=== PATIENT | male | born 1935 | race Caucasian/White ===

== ENCOUNTER → 2018-03-02 14:26 | Outpatient (CLI) | payer MEDICARE | END | disposition home or self-care (01) | LOC: D.CT 14:26 | DX: L03.119 Cellulitis of unspecified part of limb (principal) ==

== ENCOUNTER 2018-03-10 05:35 | Inpatient (IN) | payer MEDICARE ==
[2018-03-09 16:49] LABS: BASOPHILS 0.2 % (0-2); EOSINOPHILS 1.3 % (0-7); HEMATOCRIT 36.2 % (42.0-54.0); HEMOGLOBIN 12.1 g/dL (13.5-17.5); IMMATURE GRANULOCYTES 0.2 % (0-5); LYMPHOCYTES 16.2 % (15-50); MCHC 33.4 g/dL (31.0-37.0); MCV 98.6 fL (80.0-100.0); MEAN PLATELET VOLUME 8.8 fL (7.4-10.4); MONOCYTES 9.1 % (2-11); PLATELET COUNT 335 10x3/uL (130-400); RBC 3.67 10x6/uL (4.20-6.10); RDW 13.1 % (11.5-14.5)
[2018-03-09 17:02] LABS: CALCIUM 9.6 mg/dL (8.5-10.1); CARBON DIOXIDE 25.6 mmol/L (21.0-32.0); CREATININE - SERUM 1.8 mg/dL (0.6-1.3); POTASSIUM - SERUM 4.6 mmol/L (3.5-5.1)
[2018-03-09 17:28] LABS: INR 1.17 (0.85-1.17); PROTIME 14.4 SECONDS (11.6-15.0)
[2018-03-10] VITALS (13 sets, daily range): BP systolic 97–127; BP diastolic 53–76; Ht 172.7 cm; Wt 81.4 kg
[~2018-03-10] VITALS: Ht 172.7 cm; Wt 81.4 kg
--- NOTE | ~2018-03-10 | MORECARE ---
CASE MANAGEMENT DISCHARGE SUMMARY PATIENT: WILEY SANTANA UNIT: [id number] ADM DATE: 03/10/18 AGE: 82 : 34 SEX: M ROOM/BED: D.2205 AUTHOR: MAITE LARSON PHYSICIAN: REFERRING PHYSICIAN: GARY WADDELL MD DATE OF SERVICE: 03/12/18 Discharge Plan Patient Name: WILEY SANTANA Facility: [facility]:[place] : 1935 Planned Disposition: Home Anticipated Discharge Date: 03/12/18 Discharge Date: 03/12/2018 Expected LOS: 2 Initial Reviewer: [email or web address] Initial Review Date: 03/10/2018 Generated: 03/12/18 4:16 pm Comments DCP- Discharge Planning Updated by [email or web address]: Niki Alberto on 03/12/18 2:[address] Late Entry 0945 PRIMARY NURSE, CONNIE, ADVISED CM THAT THE PATIENT HAD A WALKER ORDERED WHICH HAS NOT BEEN DELIVERED. REVIEWED CM NOTES. TELEPHONE CALL TO [facility] IN [place]. LEFT MESSAGE WITH THE SERVICE. AWAITED CB. 1040 SECOND TC TO [facility] IN [place]. 1050 PATIENT'S WALKER DELIVERED TO THE BEDSIDE. 1100 CM SPOKE WITH THE PATIENT AND HIS . HE STATES SHE UNDERSTAND MEDICAL ISSUES CM CAME TO EXPLAIN THE DISCHARGE IMM. DISCUSSED AT THE BEDSIDE. REVIEWED IMM FORM. NO QUESTION OR CONCERNS. DENIES ANY ADDITIONAL NEEDS. HE IS ANXIOUS FOR DISCHARGE TO HOME. SIGNATURE OBTAINED. COPY TO THE PATIENT. COPY TO THE CHART. . DCP- Discharge Planning Updated by [email or web address]: Radha Brooke on 03/11/18 11:[address] Patient Name: WILEY SANTANA Admission Status: Elective Accout number: [id number] Admission Date: 03-10-2018 : 1935 Admission Diagnosis: Attending: GARY WADDELL Current LOS: 1 Anticipated DC Date: Planned Disposition: Home Primary Insurance: [employer] MEDICARE PPO or HMO Discharge Planning Comments: CM met with patient to assess discharge planning needs. Patient lives with his where he is independent. He is nonweight bearing on his right leg. He has a wheelchair, ramp and shower chair at home. He does not have home health and did not want any this time. He stated that PT recommended a walker. I ordered a walker from [facility] and spoke with Saadia. She will have the walker delivered to the hospital before discharge. Patient stated he is safe to return home and denies any other needs at this time. CM will continue to follow and assist with DC planning Road Advisor: Radha Brooke DCPIA - Discharge Planning Initial Assessment Updated by [email or web address]: Radha Brooke on 03/11/18 12:44 pm * Is the patient Alert and Oriented? Yes * How many steps to enter\exit or inside your home? RAMP * PCP [facility] * Pharmacy [facility] * Preadmission Environment Home with Family * ADLs Partial Dependent * Partial ADLs (Assistance needed) Ambulation * Equipment Shower Chair Wheelchair * List name and contact numbers for known caregivers / representatives who currently or will assist patient after discharge: ALICIA () [phone] * Verbal permission to speak to the caregivers and representatives has been obtained from the patient. Yes * Community resources currently utilized None * Additional services required to return to the preadmission environment? Yes * Can the patient safely return to the preadmission environment? Yes * Has this patient been hospitalized within the prior 30 days at any hospital? No Coverage Notice Reviewer: [email or web address] - Niki Alberto Notice Issued Date-Time: 03/12/2018 11:00 Notice Type: IM Discharge Notice Notice Delivered To: Patient Relationship to Patient: Mechanical Design Engineer Products Name: Delivery Method: HAND - Hand Delivered Renee Days: Prior Verbal Notification: Recipient Understood Notice: Yes Recipient Signature: Yes Med Rec Note Co-signed by Attending: Coverage Notice Comment: CM EXPLAINED TO THE PATIENT AND HIS PER HIS REQUEST. NO QUESTIONS OR CONCERNS. REVIEWED THE IMM FORM. PATIENT SIGNATURE OBTAINED. Last DP export: 03/12/18 2:10 p Patient Name: WILEY SANTANA Page 10161 at 1516 All edits/amendments must be made on the electronic document DICTATION DATE: 03/12/186 STRAW HAT PLUNGER OPERATOR: JILLIAN 03/12/181515 RPT#: [id number] DC DATE:03/12/18 STATUS: DIS IN [place] [address] [place] [address] END OF REPORT
--- NOTE | ~2018-03-10 | MORECARE ---
CASE MANAGEMENT DISCHARGE SUMMARY PATIENT: WILEY SANTANA UNIT: [id number] ADM DATE: 03/10/18 AGE: 82 : 34 SEX: M ROOM/BED: D.2205 AUTHOR: MAITE LARSON PHYSICIAN: REFERRING PHYSICIAN: GARY WADDELL MD DATE OF SERVICE: 03/11/18 Discharge Plan Patient Name: WILEY SANTANA [facility] [facility] 1935 Planned Disposition: Home Anticipated Discharge Date: Discharge Date: Expected LOS: Initial Reviewer: [email or web address] Initial Review Date: 03/10/2018 Generated: 03/11/18 1:45 pm DCPIA - Discharge Planning Initial Assessment Updated by [email or web address]: Radha Brooke on 03/11/18 12:44 pm * Is the patient Alert and Oriented? Yes * How many steps to enter\exit or inside your home? RAMP * PCP [facility] * Pharmacy [facility] * Preadmission Environment Home with Family * ADLs Partial Dependent * Partial ADLs (Assistance needed) Ambulation * Equipment Shower Chair Wheelchair * List name and contact numbers for known caregivers / representatives who currently or will assist patient after discharge: ALICIA () [phone] * Verbal permission to speak to the caregivers and representatives has been obtained from the patient. Yes * Community resources currently utilized None * Additional services required to return to the preadmission environment? Yes * Can the patient safely return to the preadmission environment? Yes * Has this patient been hospitalized within the prior 30 days at any hospital? No External Providers External Provider: [facility] Next Contact Date: Service Request Date: Service Type: Resolution: Reviewer: Comments: Patient Name: WILEY SANTANA Page 48719 at 1245 All edits/amendments must be made on the electronic document DICTATION DATE: 03/11/18 1245 FERRYBOAT PILOT: JILLIAN 03/11/18 1245 RPT#: [id number] DC DATE: STATUS: ADM IN [facility] [address] [place] [address] END OF REPORT
--- NOTE | ~2018-03-10 | MORECARE ---
CASE MANAGEMENT DISCHARGE SUMMARY PATIENT: WILEY SANTANA UNIT: [id number] ADM DATE: 03/10/18 AGE: 82 : 34 SEX: M ROOM/BED: D.2205 AUTHOR: MAITE LARSON PHYSICIAN: REFERRING PHYSICIAN: GARY WADDELL MD DATE OF SERVICE: 03/11/18 Discharge Plan Patient Name: WILEY SANTANA Facility: [facility]:[place] : 1935 Planned Disposition: Home Anticipated Discharge Date: Discharge Date: Expected LOS: Initial Reviewer: [email or web address] Initial Review Date: 03/10/2018 Generated: 03/11/18 1:53 pm Comments DCP- Discharge Planning Updated by [email or web address]: Radha Brooke on 03/11/18 11:[address] Patient Name: WILEY SANTANA Admission Status: Elective Accout number: [id number] Admission Date: 03-10-2018 : 1935 Admission Diagnosis: Attending: GARY WADDELL Current LOS: 1 Anticipated DC Date: Planned Disposition: Home Primary Insurance: [employer] MEDICARE PPO or HMO Discharge Planning Comments: CM met with patient to assess discharge planning needs. Patient lives with his where he is independent. He is nonweight bearing on his right leg. He has a wheelchair, ramp and shower chair at home. He does not have home health and did not want any this time. He stated that PT recommended a walker. I ordered a walker from [facility] and spoke with Saadia. She will have the walker delivered to the hospital before discharge. Patient stated he is safe to return home and denies any other needs at this time. CM will continue to follow and assist with DC planning Industrial Therapist: Radha Brooke DCPIA - Discharge Planning Initial Assessment Updated by [email or web address]: Radha Brooke on 03/11/18 12:44 pm * Is the patient Alert and Oriented? Yes * How many steps to enter\exit or inside your home? RAMP * PCP [facility] * [facility] * Preadmission Environment Home with Family * ADLs Partial Dependent * Partial ADLs (Assistance needed) Ambulation * Equipment Shower Chair Wheelchair * List name and contact numbers for known caregivers / representatives who currently or will assist patient after discharge: ALICIA () [phone] * Verbal permission to speak to the caregivers and representatives has been obtained from the patient. Yes * Community resources currently utilized None * Additional services required to return to the preadmission environment? Yes * Can the patient safely return to the preadmission environment? Yes * Has this patient been hospitalized within the prior 30 days at any hospital? No Last DP export: 03/11/18 11:45 a Patient Name: WILEY SANTANA Page 97673 at 1253 All edits/amendments must be made on the electronic document DICTATION DATE: 03/11/18 125 SUPERVISOR ALTERATION WORKROOM: JILLIAN 03/11/18 125 RPT#: [id number] DC DATE: STATUS: ADM IN [facility] [address] [place] [address] END OF REPORT
--- NOTE | ~2018-03-10 | MORECARE ---
CASE MANAGEMENT DISCHARGE SUMMARY PATIENT: WILEY SANTANA UNIT: [id number] ADM DATE: 03/10/18 AGE: 82 : 34 SEX: M ROOM/BED: D.2205 AUTHOR: MAITE LARSON PHYSICIAN: REFERRING PHYSICIAN: GARY WADDELL MD DATE OF SERVICE: 03/12/18 Discharge Plan Patient Name: WILEY SANTANA Facility: [facility]:[place] : 1935 Planned Disposition: Home Anticipated Discharge Date: 03/12/18 Discharge Date: 03/12/2018 Expected LOS: 2 Initial Reviewer: [email or web address] Initial Review Date: 03/10/2018 Generated: 03/12/18 4:10 pm Comments DCP- Discharge Planning Updated by [email or web address]: Radha Brooke on 03/11/18 11:[address] Patient Name: WILEY SANTANA Admission Status: Elective Accout number: [id number] Admission Date: 03-10-2018 : 1935 Admission Diagnosis: Attending: GARY WADDELL Current LOS: 1 Anticipated DC Date: Planned Disposition: Home Primary Insurance: [employer] MEDICARE PPO or HMO Discharge Planning Comments: CM met with patient to assess discharge planning needs. Patient lives with his where he is independent. He is nonweight bearing on his right leg. He has a wheelchair, ramp and shower chair at home. He does not have home health and did not want any this time. He stated that PT recommended a walker. I ordered a walker from [facility] and spoke with Saadia. She will have the walker delivered to the hospital before discharge. Patient stated he is safe to return home and denies any other needs at this time. CM will continue to follow and assist with DC planning Director Biostatistics: Radha Brooke DCPIA - Discharge Planning Initial Assessment Updated by [email or web address]: Radha Brooke on 03/11/18 12:44 pm * Is the patient Alert and Oriented? Yes * How many steps to enter\exit or inside your home? RAMP * PCP [facility] * [facility] * Preadmission Environment Home with Family * ADLs Partial Dependent * Partial ADLs (Assistance needed) Ambulation * Equipment Shower Chair Wheelchair * List name and contact numbers for known caregivers / representatives who currently or will assist patient after discharge: ALICIA () [phone] * Verbal permission to speak to the caregivers and representatives has been obtained from the patient. Yes * Community resources currently utilized None * Additional services required to return to the preadmission environment? Yes * Can the patient safely return to the preadmission environment? Yes * Has this patient been hospitalized within the prior 30 days at any hospital? No Last DP export: 03/11/18 11:53 a Patient Name: WILEY SANTANA Page 10985 at 1510 All edits/amendments must be made on the electronic document DICTATION DATE: 03/12/18 [address] DRIVER: JILLIAN 03/12/18 1509 RPT#: [id number] DC DATE:03/12/18 STATUS: DIS IN [facility] [address] [place] [address] END OF REPORT
[~2018-03-10 05:35] MED LIST: ADVAIR HFA 230-12 GM INH; HYTRIN5 MG PO; ISOSORBIDE MONO30 M1 PO; NIFEDIPINE30 MG/BOT1 PO; PREVACID30 MG PO; THEO-24400 MG PO; ZOCOR40 MG PO
[2018-03-10] MEDS ORDERED: VENTOLIN HFA18 GM INH (06:24)
[2018-03-10 14:29] LABS: BASOPHILS 0 % (0-2); EOSINOPHILS 0.1 % (0-7); HEMATOCRIT 32.6 % (42.0-54.0); HEMOGLOBIN 10.8 g/dL (13.5-17.5); IMMATURE GRANULOCYTES 0.3 % (0-5); LYMPHOCYTES 4.2 % (15-50); MCH 32.8 pg (26.0-34.0); MCHC 33.1 g/dL (31.0-37.0); MCV 99.1 fL (80.0-100.0); MEAN PLATELET VOLUME 8.8 fL (7.4-10.4); MONOCYTES 1.1 % (2-11); NEUTROPHILS 94.3 % (40-80); PLATELET COUNT 303 10x3/uL (130-400); RBC 3.29 10x6/uL (4.20-6.10); RDW 13.2 % (11.5-14.5); WBC 11.5 10x3/uL (4.8-10.8)
[2018-03-10 14:39] LABS: ANION GAP 15.4 mmol/L (8-16); CALCIUM 8.9 mg/dL (8.5-10.1); CARBON DIOXIDE 23.2 mmol/L (21.0-32.0); CREATININE - SERUM 1.7 mg/dL (0.6-1.3); POTASSIUM - SERUM 4.6 mmol/L (3.5-5.1)
[2018-03-11] VITALS: BP 127/58
[2018-03-11 04:00] VITALS: BP 134/60
[2018-03-11 08:49] VITALS: BP 133/62
[2018-03-11 12:23] VITALS: BP 149/78
[2018-03-11 17:00] VITALS: BP 133/60
[2018-03-11 19:54] VITALS: BP 141/63
[2018-03-12] VITALS: BP 124/65
[2018-03-12 04:00] VITALS: BP 146/83
[2018-03-12 08:45] VITALS: BP 161/76
[2018-03-12] MEDS ORDERED: NORCO 7.5/325 T1 TA1 PO (09:06)
[2018-03-12 12:00] VITALS: BP 124/73
== END 2018-03-12 11:52 | disposition home or self-care (01) | DRG 505 ==
LOC: D.OPS 05:35 → D.PAN 07:45 → D.OPS 07:45 → D.MS 11:13 → D.OPS 11:14 → D.MS 11:15
PROVIDERS: Anesthesiology; Orthopaedic Surgery
PROC: 0QSL04Z Reposition Right Tarsal with Internal Fixation Device, Open Approach (ICD-10-PCS; principal; 2018-03-10 07:30)
DX: S92.001A Unspecified fracture of right calcaneus, initial encounter for closed fracture (principal); S92.101A Unspecified fracture of right talus, initial encounter for closed fracture; I10 Essential (primary) hypertension; I25.10 Atherosclerotic heart disease of native coronary artery without angina pectoris

== ENCOUNTER → 2019-05-31 14:20 | Outpatient (CLI) | payer MEDICARE ==
[2018-03-10 11:52] VITALS: BMI 27.2
[~2019-05-31 14:20] MED LIST changes: +NORCO 7.5/325 T1 TA1 PO; +VENTOLIN HFA18 GM INH
== END | disposition home or self-care (01) ==
LOC: D.RAD 14:20 → D.RT 15:00
PROVIDERS: ATTEND Internal Medicine Pulmonary Disease
DX: J44.9 Chronic obstructive pulmonary disease, unspecified (principal)

== ENCOUNTER → 2019-09-12 18:55 | Outpatient (CLI) | payer MEDICARE ==
[2018-03-10 11:52] VITALS: BMI 27.2
[2019-09-12 19:22] LABS: HEMATOCRIT 42.9 % (42.0-54.0); HEMOGLOBIN 13.8 g/dL (13.5-17.5); MCHC 32.2 g/dL (31.0-37.0); MCV 102.6 fL (80.0-100.0); MEAN PLATELET VOLUME 9.7 fL (7.4-10.4); PLATELET COUNT 293 10x3/uL (130-400); RBC 4.18 10x6/uL (4.20-6.10); RDW 14.1 % (11.5-14.5); WBC 10.1 10x3/uL (4.8-10.8)
[2019-09-12 20:56] LABS: EOSINOPHILS 8 % (0-7); LYMPHOCYTES 25 % (15-50); MONOCYTES 6 % (2-11); NEUTROPHILS 61 % (40-80); PLATELET ESTIMATE NORMAL
== END | disposition home or self-care (01) ==
LOC: D.LABREF 18:55
PROVIDERS: ATTEND Legal Medicine
DX: C61 Malignant neoplasm of prostate (principal); R74.8 Abnormal levels of other serum enzymes

== ENCOUNTER → 2019-09-13 12:49 | Outpatient (CLI) | payer MEDICARE ==
[2018-03-10 11:52] VITALS: BMI 27.2
== END | disposition home or self-care (01) ==
LOC: D.LABREF 12:49
PROVIDERS: ATTEND Internal Medicine Pulmonary Disease
DX: J44.9 Chronic obstructive pulmonary disease, unspecified (principal)

== ENCOUNTER → 2019-12-22 14:18 | Outpatient (CLI) | payer MEDICARE ==
[2018-03-10 11:52] VITALS: BMI 27.2
== END | disposition home or self-care (01) ==
LOC: D.CT 14:18
PROVIDERS: ATTEND Internal Medicine Pulmonary Disease
DX: J44.9 Chronic obstructive pulmonary disease, unspecified (principal)

== ENCOUNTER → 2020-10-03 15:15 | Outpatient (CLI) | payer MEDICARE ==
[2018-03-10 11:52] VITALS: BMI 27.2
== END | disposition home or self-care (01) ==
LOC: D.LABREF 15:15
PROVIDERS: ATTEND Internal Medicine Pulmonary Disease
DX: E88.01 Alpha-1-antitrypsin deficiency (principal)